=== PATIENT | male | born 1950 | race Caucasian/White ===

== ENCOUNTER 2017-11-01 23:35 | Inpatient (IN) | payer MEDICARE, OTHER ==
[~2017-11-01] VITALS: Ht 176.5 cm; Wt 103.0 kg
--- NOTE | 2017-11-01 23:55 | NUR ---
Admitted a 67 y/o male from [facility], on 5150 hold, per hold, patient told another citizen that he wanter to end his life. He stated that he was going to kill himself with a knife. [facility] and transferred to bed safely. Patient admitting dx is depression and medical dx. of Hypertension, COPD, CHF, DM, Arthritis and etoh abuse. Upon face to face evaluation, patient appeared alert and oriented x 3-4, calm, cooperative, appeared depressed, withdrawn, denies si/hi. No SOB, no acute distress, breathing even and unlabored, c/o left leg pain 10/27, non pharmacological intervention rendered while waiting for medication. Explained the admission process to the patient. Patient signed the paper works. Skin assessment done. Pictures done. Notified Tammie Young regarding the admissions med recon and orders given noted and carried out. Belongings check for contraband. Kept clean, dry and comfortable. Will continue to monitor [id number] for safety
[2017-11-02] MEDS ORDERED: MAGNESIUM HYDROXIDE 30 ML UDC PO PRN
[2017-11-02] MEDS ORDERED: LORAZEPAM 0.5 MG TABLET PO PRN
[2017-11-02] MEDS ORDERED: ACETAMINOPHEN 325 MG TABLET PO PRN
[2017-11-02] MEDS ORDERED: MAG HYDROX/AL HYDROX/SIMETH 30 ML UDC PO PRN
--- NOTE | 2017-11-02 00:45 | NUR ---
GPS RN note: Patient asleep in bed, arousable to verbal and tactile stimuli, No sob, no acute distress, breathing even and unlabored, no s/s of pain and discomfort, will continue to monitor [id number] for safety
[2017-11-02] MEDS ORDERED: ENAL20TA PO (00:54)
[2017-11-02] MEDS ORDERED: ALBU18HF2 INH (00:54)
[2017-11-02] MEDS ORDERED: CHLO25CA22 PO (00:54)
[2017-11-02] MEDS ORDERED: THIA100T13 PO (00:54)
[2017-11-02] MEDS ORDERED: SULF500T8 PO (00:54)
[2017-11-02] MEDS ORDERED: SIMV10TA6 PO (00:54)
[2017-11-02] MEDS ORDERED: ASPI-1169 PO (00:54)
[2017-11-02] MEDS ORDERED: ATEN25TA PO (00:54)
[2017-11-02] MEDS ORDERED: HYDR-548 PO (00:54)
[2017-11-02] MEDS ORDERED: FOLI1TAB16 PO (00:54)
[2017-11-02] MEDS ORDERED: TIOT18CA3 INH (00:54)
[2017-11-02] MEDS ORDERED: FLUT1DIS3 IH (00:54)
[2017-11-02] MEDS ORDERED: SPIR25TA6 PO (00:58)
[2017-11-02] MEDS ORDERED: ERGO500040 PO (00:58)
[2017-11-02] MEDS ORDERED: SERT50TA PO (00:58)
[2017-11-02] MEDS ORDERED: LACT10SO PO (00:58)
[2017-11-02 01:00] VITALS: BP 170/93
[2017-11-02] MEDS ORDERED: CLONIDINE HCL 0.1 MG TABLET PO ONE (02:00)
[2017-11-02] MEDS ORDERED: INSULIN REGULAR, HUMAN 100 UNIT/ML 3 ML VIAL SQ PRN (02:00)
[2017-11-02] MEDS: HYDROCODONE/APAP 5/325MG 1 EACH TABLET PO PRN (02:47)
--- NOTE | 2017-11-02 02:47 | NUR ---
GPS rn note: [place] 5-325mg po given for 6/10 left leg pain, will continue to monitor [id number] for safety
[2017-11-02 07:03] LABS: BASOPHILS % (AUTO) 0.2 % (0.0-2.0); EOSINOPHILS % (AUTO) 0.1 % (0.0-6.0); HEMATOCRIT 41 % (39-51); LYMPHOCYTES # (AUTO) 1.2 /CMM (0.8-4.8); LYMPHOCYTES % (AUTO) 18.7 % (20.0-44.0); MEAN CORPUSCULAR HGB CONC 34 g/dl (31.0-36.0); MEAN CORPUSCULAR VOLUME 102 fL (80-96); MONOCYTES # (AUTO) 0.5 /CMM (0.1-1.30); MONOCYTES % (AUTO) 7.1 % (2.0-12.0); NEUTROPHILS # (AUTO) 4.9 /CMM (1.8-8.9); NEUTROPHILS % (AUTO) 73.9 % (43.0-81.0); PLATELET COUNT (AUTO) 118 /CMM (150-450); RDW COEFFICIENT OF VARIATION 14.3 (11.5-15.0); RED BLOOD CELL COUNT(AUTO) 4.02 MIL/uL (4.5-6.0); WHITE BLOOD COUNT (AUTO) 6.6 K/uL (4.3-11.0)
--- NOTE | 2017-11-02 07:14 | NUR ---
gps rn note: Left message to juan (daughter) of the admission. Endorsed to the next shift
[2017-11-02 07:18] LABS: ALBUMIN 2.6 g/dL (3.4-5.0); BILIRUBIN,TOTAL 1.3 mg/dL (0.2-1.0); CALCIUM, SERUM 7.8 mg/dL (8.5-10.1); CREATININE 0.6 mg/dL (0.6-1.3); POTASSIUM 3.6 mmol/L (3.5-5.1)
[2017-11-02 08:00] VITALS: BP 135/84
[2017-11-02] MEDS: BLOOD SUGAR DIAGNOSTIC 1 EACH STRIP IN SCH ×2 (08:19→12:00)
[2017-11-02] MEDS: NICOTINE PATCH (21MG) 21 MG PATCH.TD24 TD SCH (10:26)
[2017-11-02] MEDS: SERTRALINE HCL 50 MG TABLET PO SCH (10:27)
--- NOTE | 2017-11-02 12:05 | NUR ---
GPS/RN DR ROBBINS SEEN THE PT AND REMINDED TO RECONCILE THE MEDS
[2017-11-02] MEDS ORDERED: LACTULOSE 10 G/15 ML UDC (PYXIS) PO PRN (13:00)
[2017-11-02] MEDS ORDERED: HYDROCODONE/APAP 10/325MG 1 EA TABLET PO PRN (13:00)
[2017-11-02] MEDS: IPRATROPIUM NEB FS 0.5 MG/2.5 ML AMPUL.NEB NEB SCH ×3 (13:30→23:30)
[2017-11-02 15:59] VITALS: BP 141/76
[2017-11-02] MEDS: SIMVASTATIN 10 MG TABLET PO SCH (17:22)
[2017-11-02] MEDS: SULFASALAZINE 500 MG TABLET PO SCH (17:22)
[2017-11-02 20:00] VITALS: BP 153/70
[2017-11-02] MEDS: TEMAZEPAM 7.5 MG CAPSULE PO PRN (21:40)
[2017-11-03] MEDS: IPRATROPIUM NEB FS 0.5 MG/2.5 ML AMPUL.NEB NEB SCH ×4 (07:35→23:30)
[2017-11-03 08:00] VITALS: BP 139/98
[2017-11-03] MEDS ORDERED: ERGOCALCIFEROL (VITAMIN D 2) 50,000 UNIT CAPSULE PO SCH (09:00)
[2017-11-03] MEDS: NICOTINE PATCH (21MG) 21 MG PATCH.TD24 TD SCH (10:06)
[2017-11-03] MEDS: FOLIC ACID 1 MG TABLET PO SCH (10:07)
[2017-11-03] MEDS: ATENOLOL 25 MG TABLET PO SCH (10:07)
[2017-11-03] MEDS: ASPIRIN 81 MG TAB.CHEW PO SCH (10:07)
[2017-11-03] MEDS: SPIRONOLACTONE 25 MG TABLET PO SCH (10:08)
[2017-11-03] MEDS: ENALAPRIL MALEATE (10 MG) 10 MG TABLET PO SCH (10:08)
[2017-11-03] MEDS: SERTRALINE HCL 50 MG TABLET PO SCH (10:08)
[2017-11-03] MEDS: THIAMINE HCL 100 MG TABLET PO SCH (10:08)
[2017-11-03] MEDS: SULFASALAZINE 500 MG TABLET PO SCH ×2 (10:10→16:28)
[2017-11-03] MEDS: FLUTICASONE/VILANTEROL 1 EACH BLST.W.DEV IH SCH (10:10)
[2017-11-03 15:33] VITALS: BP 115/59
[2017-11-03] MEDS: SIMVASTATIN 10 MG TABLET PO SCH (18:03)
[2017-11-03 19:59] VITALS: BP 109/65
[2017-11-04] MEDS: IPRATROPIUM NEB FS 0.5 MG/2.5 ML AMPUL.NEB NEB SCH ×3 (07:35→23:58)
[2017-11-04 08:00] VITALS: BP 140/80
[2017-11-04] MEDS: FLUTICASONE/VILANTEROL 1 EACH BLST.W.DEV IH SCH (08:50)
[2017-11-04] MEDS: SULFASALAZINE 500 MG TABLET PO SCH ×2 (08:50→15:59)
[2017-11-04] MEDS: ASPIRIN 81 MG TAB.CHEW PO SCH (08:51)
[2017-11-04] MEDS: FOLIC ACID 1 MG TABLET PO SCH (08:51)
[2017-11-04] MEDS: SPIRONOLACTONE 25 MG TABLET PO SCH (08:51)
[2017-11-04] MEDS: SERTRALINE HCL 50 MG TABLET PO SCH (08:51)
[2017-11-04] MEDS: ENALAPRIL MALEATE (10 MG) 10 MG TABLET PO SCH (08:51)
[2017-11-04] MEDS: THIAMINE HCL 100 MG TABLET PO SCH (08:51)
[2017-11-04] MEDS: ATENOLOL 25 MG TABLET PO SCH (08:51)
[2017-11-04] MEDS: NICOTINE PATCH (21MG) 21 MG PATCH.TD24 TD SCH (08:52)
[2017-11-04 16:00] VITALS: BP 127/72
--- NOTE | 2017-11-04 16:17 | NUR ---
Initial Discharge Plan: Pt currently resides by himself due to the fact that he is homeless. Pt has a daughter by the name of Sharita Oswald ([phone]) who will be involved in the discharge planning. SW will work with the pt, his daughter and the MD regarding appropriate discharge plans. SW will form a safe and proper discharge.
[2017-11-04] MEDS: SIMVASTATIN 10 MG TABLET PO SCH (17:01)
[2017-11-04 20:10] VITALS: BP 108/67
[2017-11-04] MEDS: HYDROCODONE/APAP 5/325MG 1 EACH TABLET PO PRN (21:19)
--- NOTE | 2017-11-04 21:19 | NUR ---
GPS-RN PATIENT C/O LEFT HIP PAIN ON A PAIN SCALE OF 7/10. VSS. ADMINISTERED NORCO 5/325MG PO ORDERED. WILL CONTINUE TO MONITOR.
[2017-11-04] MEDS: TEMAZEPAM 7.5 MG CAPSULE PO PRN (22:00)
--- NOTE | 2017-11-05 07:07 | NUR ---
WOUND CARE CONSULT WOUND CARE RECEIVED CONSULT FOR RIGHT BIG TOE. WOUND CARE WILL DEFER CONSULT TO DPM DR ODONNELL WHO IS CURRENTLY FOLLOWING. PATIENT WITH LASHAUN AT 19, WILL SEE PRN.
[2017-11-05] MEDS: IPRATROPIUM NEB FS 0.5 MG/2.5 ML AMPUL.NEB NEB SCH ×2 (07:30→14:57)
[2017-11-05 07:54] VITALS: BP 114/75
[2017-11-05] MEDS: THIAMINE HCL 100 MG TABLET PO SCH (08:37)
[2017-11-05] MEDS: NICOTINE PATCH (21MG) 21 MG PATCH.TD24 TD SCH (08:37)
[2017-11-05] MEDS: ENALAPRIL MALEATE (10 MG) 10 MG TABLET PO SCH (08:37)
[2017-11-05] MEDS: SERTRALINE HCL 50 MG TABLET PO SCH (08:37)
[2017-11-05] MEDS: FOLIC ACID 1 MG TABLET PO SCH (08:37)
[2017-11-05] MEDS: ASPIRIN 81 MG TAB.CHEW PO SCH (08:37)
[2017-11-05] MEDS: SPIRONOLACTONE 25 MG TABLET PO SCH (08:37)
[2017-11-05] MEDS: FLUTICASONE/VILANTEROL 1 EACH BLST.W.DEV IH SCH (08:38)
[2017-11-05] MEDS: SULFASALAZINE 500 MG TABLET PO SCH ×2 (08:38→16:30)
[2017-11-05] MEDS: ATENOLOL 25 MG TABLET PO SCH (08:54)
--- NOTE | 2017-11-05 14:58 | NUR ---
PT IS TAKING A SHOWER AND IS NOT UNAVAILABLE FOR TX.
[2017-11-05 16:13] VITALS: BP 120/70
[2017-11-05] MEDS: SIMVASTATIN 10 MG TABLET PO SCH (17:02)
[2017-11-05] MEDS: HYDROCODONE/APAP 5/325MG 1 EACH TABLET PO PRN (19:30)
[2017-11-05 20:14] VITALS: BP 105/60
[2017-11-05] MEDS: TEMAZEPAM 7.5 MG CAPSULE PO PRN (21:37)
[2017-11-06] MEDS: ALBUTEROL FS 2.5 MG/0.5 ML VIAL.NEB NEB PRN (00:16)
[2017-11-06] MEDS: IPRATROPIUM NEB FS 0.5 MG/2.5 ML AMPUL.NEB NEB SCH ×4 (00:16→23:25)
[2017-11-06 08:08] VITALS: BP 124/61
[2017-11-06] MEDS: SERTRALINE HCL 50 MG TABLET PO SCH (09:29)
[2017-11-06] MEDS: NICOTINE PATCH (21MG) 21 MG PATCH.TD24 TD SCH (09:29)
[2017-11-06] MEDS: FOLIC ACID 1 MG TABLET PO SCH (09:30)
[2017-11-06] MEDS: THIAMINE HCL 100 MG TABLET PO SCH (09:30)
[2017-11-06] MEDS: SPIRONOLACTONE 25 MG TABLET PO SCH (09:30)
[2017-11-06] MEDS: SULFASALAZINE 500 MG TABLET PO SCH ×2 (09:30→16:42)
[2017-11-06] MEDS: ENALAPRIL MALEATE (10 MG) 10 MG TABLET PO SCH (09:30)
[2017-11-06] MEDS: ASPIRIN 81 MG TAB.CHEW PO SCH (09:31)
[2017-11-06] MEDS: ATENOLOL 25 MG TABLET PO SCH (09:31)
[2017-11-06] MEDS: FLUTICASONE/VILANTEROL 1 EACH BLST.W.DEV IH SCH (09:31)
[2017-11-06 15:29] VITALS: BP 125/57
[2017-11-06] MEDS: SIMVASTATIN 10 MG TABLET PO SCH (17:26)
[2017-11-06 20:35] VITALS: BP 110/57
[2017-11-06] MEDS: TEMAZEPAM 7.5 MG CAPSULE PO PRN (21:46)
[2017-11-07 07:45] VITALS: BP 117/67
[2017-11-07] MEDS: IPRATROPIUM NEB FS 0.5 MG/2.5 ML AMPUL.NEB NEB SCH ×2 (08:18→15:30)
[2017-11-07] MEDS: SERTRALINE HCL 50 MG TABLET PO SCH (08:38)
[2017-11-07] MEDS: SPIRONOLACTONE 25 MG TABLET PO SCH (08:38)
[2017-11-07] MEDS: FOLIC ACID 1 MG TABLET PO SCH (08:39)
[2017-11-07] MEDS: SULFASALAZINE 500 MG TABLET PO SCH ×2 (08:39→16:14)
[2017-11-07] MEDS: NICOTINE PATCH (21MG) 21 MG PATCH.TD24 TD SCH (08:39)
[2017-11-07] MEDS: ASPIRIN 81 MG TAB.CHEW PO SCH (08:39)
[2017-11-07] MEDS: ENALAPRIL MALEATE (10 MG) 10 MG TABLET PO SCH (08:40)
[2017-11-07] MEDS: ATENOLOL 25 MG TABLET PO SCH (08:41)
[2017-11-07] MEDS: THIAMINE HCL 100 MG TABLET PO SCH (08:41)
[2017-11-07] MEDS: FLUTICASONE/VILANTEROL 1 EACH BLST.W.DEV IH SCH (08:42)
[2017-11-07 16:00] VITALS: BP 144/71
[2017-11-07] MEDS: SIMVASTATIN 10 MG TABLET PO SCH (18:13)
[2017-11-07 20:00] VITALS: BP 104/54
[2017-11-07] MEDS: TEMAZEPAM 7.5 MG CAPSULE PO PRN (21:47)
[2017-11-08] MEDS: IPRATROPIUM NEB FS 0.5 MG/2.5 ML AMPUL.NEB NEB SCH ×4 (00:19→23:30)
[2017-11-08 07:53] VITALS: BP 125/57
[2017-11-08] MEDS: FLUTICASONE/VILANTEROL 1 EACH BLST.W.DEV IH SCH (08:23)
[2017-11-08] MEDS: NICOTINE PATCH (21MG) 21 MG PATCH.TD24 TD SCH (08:23)
[2017-11-08] MEDS: THIAMINE HCL 100 MG TABLET PO SCH (08:23)
[2017-11-08] MEDS: SULFASALAZINE 500 MG TABLET PO SCH ×2 (08:23→16:03)
[2017-11-08] MEDS: FOLIC ACID 1 MG TABLET PO SCH (08:23)
[2017-11-08] MEDS: SPIRONOLACTONE 25 MG TABLET PO SCH (08:24)
[2017-11-08] MEDS: ASPIRIN 81 MG TAB.CHEW PO SCH (08:24)
[2017-11-08] MEDS: SERTRALINE HCL 50 MG TABLET PO SCH (08:24)
[2017-11-08] MEDS: ENALAPRIL MALEATE (10 MG) 10 MG TABLET PO SCH (08:24)
[2017-11-08 08:25] VITALS: BP 124/71
[2017-11-08] MEDS: ATENOLOL 25 MG TABLET PO SCH (08:25)
[2017-11-08] MEDS: ALBUTEROL FS 2.5 MG/0.5 ML VIAL.NEB NEB PRN (14:42)
[2017-11-08 16:00] VITALS: BP 101/59
--- NOTE | 2017-11-08 16:41 | NUR ---
Discharge Note: Pt was discharged to [facility] located at [address] [place] [address]; ([phone]). Pt was transported via [facility] (Trip #[id number]) at 1PM and went to 7C. Upon discharge, the pt denied suicidal and homicidal ideation as well as visual and auditory hallucinations. Pts mood and affect were calm and euthymic upon discharge. The patient will be under the care of psychiatrist, Dr. Solitario located at [address], [place] [address]; ) and his home therapy clinician, Dr. Espinoza who is located at [address] [place] [address]; ). Addendum: 01/31/18 at 1554 by ASHLEY ACHARYA Upon discharge, the pt was provided with substance use referrals as well as smoking cessation referrals: [facility] [address] [place] [address] Tel. [facility] [address] [place] Provider Mental Health Treatment Tele-dermatology HIV Services Telemedicine Services [facility] [address] [place] [address] [facility] [address] [place] [address] [employer] [email or web address] [employer] [phone]
[2017-11-08] MEDS: SIMVASTATIN 10 MG TABLET PO SCH (17:06)
[2017-11-08 20:00] VITALS: BP 117/53
[2017-11-08] MEDS: TEMAZEPAM 7.5 MG CAPSULE PO PRN (22:25)
[2017-11-09 08:00] VITALS: BP 110/65
[2017-11-09] MEDS: ALBUTEROL FS 2.5 MG/0.5 ML VIAL.NEB NEB PRN (08:06)
[2017-11-09] MEDS: IPRATROPIUM NEB FS 0.5 MG/2.5 ML AMPUL.NEB NEB SCH (08:06)
--- NOTE | 2017-11-09 09:07 | NUR ---
DR. BOWIE GAVE AN ORDER TO D/C HOLD AND D/C TO [facility] AND TO FOLLOW UP WITH PSYCH AND MEDICAL DOCTORS. SPOKE TO MANSI FROM THE FACILITY AND SAID THEY ARE ACCEPTING THE PT. TODAY.
[2017-11-09] MEDS: SERTRALINE HCL 50 MG TABLET PO SCH (09:16)
[2017-11-09] MEDS: FOLIC ACID 1 MG TABLET PO SCH (09:16)
[2017-11-09] MEDS: ASPIRIN 81 MG TAB.CHEW PO SCH (09:16)
[2017-11-09] MEDS: NICOTINE PATCH (21MG) 21 MG PATCH.TD24 TD SCH (09:16)
[2017-11-09] MEDS: SULFASALAZINE 500 MG TABLET PO SCH (09:17)
[2017-11-09] MEDS: THIAMINE HCL 100 MG TABLET PO SCH (09:17)
[2017-11-09] MEDS: ATENOLOL 25 MG TABLET PO SCH (09:17)
[2017-11-09] MEDS: SPIRONOLACTONE 25 MG TABLET PO SCH (09:17)
[2017-11-09 09:18] VITALS: BP 110/65
[2017-11-09] MEDS: ENALAPRIL MALEATE (10 MG) 10 MG TABLET PO SCH (09:18)
[2017-11-09] MEDS: FLUTICASONE/VILANTEROL 1 EACH BLST.W.DEV IH SCH (09:18)
--- NOTE | 2017-11-09 11:51 | NUR ---
Pt. doesn't want to notify Sharita Oswald about the discharge.
--- NOTE | 2017-11-09 13:10 | NUR ---
GPS/RN PT DISCHARGED TO [facility]. REPORT GIVEN TO MANSI. NO SI OR HI AT THE TIME OF D/C. VSS AMBULATORY WITH WALKER. REFUSED SKIN PICTURES ON D/C. PROPERTY RETURNED. EXIT CARE INSTRUCTIONS AND PRESCRIPTIONS GIVEN AND UNDERSTOOD. PT DOES NOT TO NOTIFY HIS DAUGHTER OF TRANSFER.
--- NOTE | 2018-01-31 15:54 | NUR ---
Substance Use Follow Up: Pt is excluded due to the fact that he was discharged to [facility] ([facility]
== END 2017-11-09 13:10 | DRG 885 ==
LOC: GPS 23:35
PROVIDERS: ADMIT Psychiatry & Neurology Psychiatry; ATTEND Psychiatry & Neurology Psychiatry
DX: F33.2 Major depressive disorder, recurrent severe without psychotic features (principal); E44.1 Mild protein-calorie malnutrition; R45.851 Suicidal ideations; E88.09 Other disorders of plasma-protein metabolism, not elsewhere classified; E78.5 Hyperlipidemia, unspecified; J44.9 Chronic obstructive pulmonary disease, unspecified; D69.6 Thrombocytopenia, unspecified; I10 Essential (primary) hypertension; Z68.33 Body mass index [BMI] 33.0-33.9, adult; D75.89 Other specified diseases of blood and blood-forming organs; F10.20 Alcohol dependence, uncomplicated; E80.6 Other disorders of bilirubin metabolism; S90.422A Blister (nonthermal), left great toe, initial encounter; X58.XXXA Exposure to other specified factors, initial encounter; Y93.9 Activity, unspecified; Y92.009 Unspecified place in unspecified non-institutional (private) residence as the place of occurrence of the external cause; S90.111A Contusion of right great toe without damage to nail, initial encounter; L60.3 Nail dystrophy; Z59.0 Homelessness
CPT/HCPCS: 36415; 73630-TC; 80053-TC; 80061-TC; 82962-TC; 85025-TC; 87081-TC; J1815; Z7610

== ENCOUNTER 2018-04-28 16:56 | Inpatient (IN) | payer MEDICARE, MEDICAID ==
[~2018-04-28] VITALS: Ht 177.8 cm; Wt 91.7 kg
[2018-04-28] MEDS: ENALAPRIL MALEATE (10 MG) 10 MG TABLET PO SCH (09:00)
[~2018-04-28 16:56] MED LIST: ALBU18HF2 INH; ASPI-1169 PO; ATEN25TA PO; CHLO25CA22 PO; ENAL20TA PO; ERGO500040 PO; FLUT1DIS3 IH; FOLI1TAB16 PO; HYDR-4354 PO; LACT10SO PO; SERT50TA PO; SIMV10TA6 PO; SPIR25TA6 PO; SULF500T8 PO; THIA100T13 PO; TIOT18CA3 INH
--- NOTE | 2018-04-28 17:15 | NUR ---
PT BIB SELF. COMP OF HAVING HIP PAIN. NO SOB NOTED. NO ACUTE DISTRESS AT THIS TIME. WILL BE ADMITTED TO HOSPITAL. AWAITING FOR MD WEST.
[2018-04-28 17:54] LABS: BASOPHILS # (AUTO) 0.1 /CMM (0.0-0.2); BASOPHILS % (AUTO) 0.6 % (0.0-2.0); EOSINOPHILS % (AUTO) 1.1 % (0.0-6.0); HEMATOCRIT 43 % (39-51); HEMOGLOBIN 14.6 g/dL (13.5-17.5); LYMPHOCYTES # (AUTO) 2.3 /CMM (0.8-4.8); LYMPHOCYTES % (AUTO) 23.6 % (20.0-44.0); MEAN CORPUSCULAR HGB CONC 34 g/dl (31.0-36.0); MEAN CORPUSCULAR VOLUME 92 fL (80-96); MONOCYTES # (AUTO) 0.9 /CMM (0.1-1.30); MONOCYTES % (AUTO) 9.5 % (2.0-12.0); NEUTROPHILS # (AUTO) 6.3 /CMM (1.8-8.9); NEUTROPHILS % (AUTO) 65.2 % (43.0-81.0); PLATELET COUNT (AUTO) 154 /CMM (150-450); RED BLOOD CELL COUNT(AUTO) 4.67 MIL/uL (4.5-6.0); WHITE BLOOD COUNT (AUTO) 9.7 K/uL (4.3-11.0)
[2018-04-28 18:05] LABS: ALBUMIN 3.5 g/dL (3.4-5.0); BILIRUBIN,DIRECT 0.1 mg/dL (0.0-0.2); BILIRUBIN,TOTAL 0.3 mg/dL (0.2-1.0); CALCIUM, SERUM 8.7 mg/dL (8.5-10.1); CREATININE 0.8 mg/dL (0.6-1.3); TOTAL PROTEIN, SERUM 7.1 g/dL (6.4-8.2)
[2018-04-28 18:14] LABS: APPEARANCE,URINE Clear (CLEAR); BILIRUBIN,URINE Negative (NEGATIVE); BLOOD, URINE Negative Ery/uL (NEGATIVE); COLOR,URINE Yellow (YELLOW); KETONES,URINE Negative (NEGATIVE); LEUKOCYTE ESTERASE ,URINE Negative (NEGATIVE); NITRITE, URINE Negative (NEGATIVE); PROTEIN,URINE Negative (NEGATIVE); UGLUCOSE Negative (NEGATIVE); UROBILINOGEN,URINE 0.2 EU/dL (0.2)
[2018-04-28 18:38] LABS: POTASSIUM 3.9 mmol/L (3.5-5.1)
[2018-04-28] MEDS ORDERED: Z GUARD REMEDY 2 OZ OINT TP PRN (19:00)
[2018-04-28] MEDS ORDERED: ONDANSETRON HCL/PF 4 MG/2 ML VIAL IVP PRN (19:00)
[2018-04-28] MEDS ORDERED: MAG HYDROX/AL HYDROX/SIMETH 30 ML UDC PO PRN (19:00)
[2018-04-28] MEDS ORDERED: MAGNESIUM HYDROXIDE 30 ML UDC PO PRN (19:00)
[2018-04-28] MEDS ORDERED: ACETAMINOPHEN 325 MG TABLET PO PRN (19:00)
--- NOTE | 2018-04-28 19:23 | NUR ---
ENDORSEMENT REC'D FROM KADEN CHAN FOR RENE
[2018-04-28] MEDS ORDERED: HYDROCODONE/APAP 10/325MG 1 EA TABLET PO ONE (19:30)
[2018-04-28] MEDS ORDERED: HYDROCODONE/APAP 10/325MG 1 EA TABLET ONE (19:45)
--- NOTE | 2018-04-28 20:00 | NUR ---
[facility] BED 316-2
--- NOTE | 2018-04-28 20:49 | NUR ---
REPORT GIVEN TO KADEN HACKETT. PT TRANSFERRED WITH ENGINEERING OFFICER
--- NOTE | 2018-04-28 21:20 | NUR ---
SCIENTIFIC LINGUIST NOTES PT ARRIVED ON TO THE UNIT @2119 VIA GURNEY. PT ABLE TO AMBULATE TO THE BED WITH ASSISTANCE. PT STATED THAT HE FELL EARLIER TODAY AT [facility]. PER PT HE DID NOT FALL ON HIS HEAD, BUT FELL ON HIS LEFT HIP. PT HAS A LEFT HAND CUT FROM THE FALL AND ABD REDNESS PER PT FROM HIS PANTS. NO BRUISING NOTED. ALL PATIENT BELONGINGS ACCOUNTED FOR AND DOCUMENTED. PT HAS A WALLET IN HOSPITAL SAFE. EDUCATED THE PATIENT TO THE USE OF THE CALL LIGHT. SAFETY PRECAUTIONS IN PLACE, BED IN LOWEST LOCKED POSITION, CALL LIGHT WITHIN REACH. WILL CONTINUE TO MONITOR.
[2018-04-28 22:00] VITALS: BP 129/80
[2018-04-28] MEDS: HYDROCODONE/APAP 10/325MG 1 EA TABLET PO SCH (23:00)
[2018-04-28] MEDS: CHLORDIAZEPOXIDE HCL 25 MG CAPSULE PO SCH (23:00)
[2018-04-28] MEDS: IPRATROPIUM NEB FS 0.5 MG/2.5 ML AMPUL.NEB NEB SCH (23:00)
[2018-04-28] MEDS: LACTULOSE 10 G/15 ML UDC (PYXIS) PO SCH (23:00)
--- NOTE | 2018-04-28 23:00 | NUR ---
RN NOTES PT STATED THAT HE WAS NOT IN PAIN AT THE MOMENT. INFORMED PATIENT THAT HE HAS NORCO AVAILABLE TO HIM IF HE HAS PAIN. PT STATED THAT HE HAD, HAD NORCO IN THE ER AND FELT THAT HE DID NOT NEED IT AT THE MOMENT. WILL CONTINUE TO FOLLOW UP AND MONITOR.
[2018-04-28] MEDS: ZOLPIDEM TARTRATE 5 MG TABLET PO PRN (23:02)
--- NOTE | 2018-04-28 23:05 | NUR ---
RN NOTES PT REQUESTED PRN SHIELA FOR SLEEP. WILL ADMINISTER AND CONTINUE TO MONITOR.
--- NOTE | 2018-04-28 23:10 | NUR ---
RN NOTES PT STATED THAT HE DOES NOT TAKE LIBRIUM/LACTULOSE AT HOME. PT REFUSED ATROVENT BREATHING TREATMENT AND 0130, STATED "I WILL BE SLEEPING BY THEN". WILL INFORM RESPIRATORY THERAPIST.
[2018-04-29] MEDS: HYDROCODONE/APAP 10/325MG 1 EA TABLET PO SCH ×6 (01:00→20:19)
--- NOTE | 2018-04-29 01:00 | NUR ---
RN NOTES NO COMPLAINTS OF PAIN. WILL HOLD NORCO. WILL ENDORSE TO DAY SHIFT NURSE TO FOLLOW UP ON MED RECON.
[2018-04-29] MEDS: IPRATROPIUM NEB FS 0.5 MG/2.5 ML AMPUL.NEB NEB SCH ×4 (01:30→19:04)
[2018-04-29] MEDS: CHLORDIAZEPOXIDE HCL 25 MG CAPSULE PO SCH ×3 (04:01→20:20)
--- NOTE | 2018-04-29 06:52 | NUR ---
RN CLOSING NOTES PT AWAKE AND RESTING IN BED. ALL PATIENT NEEDS MET OVERNIGHT. PT HAS A WALLET IN HOSPITAL SAFE. PT HAS A LEFT HAND #20 IV INTACT AND PATENT. WILL ENDORSE TO DAY SHIFT NURSE TO FOLLOW UP WITH PATIENT'S AT HOME MEDICATIONS. SAFETY PRECAUTIONS IN PLACE, BED IN LOWEST LOCKED POSITION, CALL LIGHT WITHIN REACH. WILL ENDORSE TO DAY SHIFT NURSE FOR CONTINUITY OF CARE.
[2018-04-29 06:59] LABS: BASOPHILS % (AUTO) 0.3 % (0.0-2.0); EOSINOPHILS % (AUTO) 1.7 % (0.0-6.0); HEMATOCRIT 43 % (39-51); HEMOGLOBIN 14.7 g/dL (13.5-17.5); LYMPHOCYTES % (AUTO) 25.7 % (20.0-44.0); MEAN CORPUSCULAR HGB CONC 34 g/dl (31.0-36.0); MEAN CORPUSCULAR VOLUME 91 fL (80-96); MONOCYTES # (AUTO) 0.7 /CMM (0.1-1.30); NEUTROPHILS # (AUTO) 4.9 /CMM (1.8-8.9); NEUTROPHILS % (AUTO) 63.3 % (43.0-81.0); PLATELET COUNT (AUTO) 142 /CMM (150-450); RED BLOOD CELL COUNT(AUTO) 4.75 MIL/uL (4.5-6.0); WHITE BLOOD COUNT (AUTO) 7.8 K/uL (4.3-11.0)
[2018-04-29 07:13] LABS: CALCIUM, SERUM 8.8 mg/dL (8.5-10.1); CREATININE 0.6 mg/dL (0.6-1.3); MAGNESIUM 1.3 mg/dL (1.8-2.4); PHOSPHORUS 4.8 mg/dL (2.5-4.9); POTASSIUM 4.3 mmol/L (3.5-5.1)
[2018-04-29 08:00] VITALS: BP 109/73
--- NOTE | 2018-04-29 08:00 | NUR ---
MS RN AM NOTES PT ALERT,AWAKE ORIENTED X4.VERBALLY RESPONSIVE.PT ABLE TO AMBULATE WITH ASSISTANCE.SEEN BY DEEPIKA ANTOINE FOR WOUND CONSULT.AWAITING FOR TX ORDERS.PT DENIES ANY DISTRESS.ON NORCO 10/325 MG PO PAIN MGT.SAFETY PRECAUTIONS IN PLACE, BED IN LOWEST LOCKED POSITION, CALL LIGHT WITHIN REACH. WILL CONTINUE TO MONITOR.
[2018-04-29] MEDS: Magnesium 1GM/D5W 100ML PREMIX 100 ML IV SCH ×2 (08:23→11:17)
[2018-04-29] MEDS: THIAMINE HCL 100 MG TABLET PO SCH (08:24)
--- NOTE | 2018-04-29 08:31 | NUR ---
HELD NORCO 10/325 MG PO TAB-PT JUST HAD NORCO 10/325 MG TAB AT 0634 AM TODAY WITH EFFECTIVE RESULT.PT STATED THAT HE HAS THIS LT HIP PAIN FOR A LONG TIME AND HE DOESN'T WANT Any PAIN MED AT THIS TIME.
[2018-04-29] MEDS: ASPIRIN 81 MG TAB.CHEW PO SCH (08:34)
[2018-04-29] MEDS: SPIRONOLACTONE 25 MG TABLET PO SCH (08:35)
[2018-04-29] MEDS: FOLIC ACID 1 MG TABLET PO SCH (08:36)
[2018-04-29] MEDS: SERTRALINE HCL 50 MG TABLET PO SCH (08:36)
[2018-04-29] MEDS: ATENOLOL 25 MG TABLET PO SCH (08:36)
[2018-04-29] MEDS: LACTULOSE 10 G/15 ML UDC (PYXIS) PO SCH ×2 (08:36→17:00)
[2018-04-29] MEDS: ENALAPRIL MALEATE (10 MG) 10 MG TABLET PO SCH (09:00)
[2018-04-29] MEDS ORDERED: SULFASALAZINE 500 MG TABLET PO SCH (09:00)
[2018-04-29] MEDS: FLUTICASONE/VILANTEROL 1 EACH BLST.W.DEV IH SCH (11:24)
[2018-04-29] MEDS ORDERED: ACET325T53 PO (15:31)
[2018-04-29] MEDS ORDERED: NAPH15DR62 EACHEYE (15:31)
[2018-04-29] MEDS ORDERED: FLUT1AER5 IH (15:31)
[2018-04-29] MEDS ORDERED: COLC0.6C3 PO (15:31)
[2018-04-29] MEDS ORDERED: ZOLP5TAB8 PO (15:31)
[2018-04-29] MEDS ORDERED: ALBU2.5V38 IH (15:38)
[2018-04-29] MEDS ORDERED: HYDR-4384 PO ×2 (15:42)
[2018-04-29 16:00] VITALS: BP 115/69
--- NOTE | 2018-04-29 17:00 | NUR ---
REVIEWED PT'S MED LIST FROM THE SNF AND ADDED IT TO THE PRESENT HOME MED LIST AND CORRECTED THE CHANGES PER SNF.INFORMED DR LYNN TO REVIEW PRESENT HOME MED LIST ONCE AGAIN.DR LYNN AWARE.
[2018-04-29] MEDS: NEOMY SULF/BACITRAC ZN/POLY 15 GM TUBE TP SCH (17:50)
[2018-04-29] MEDS: SIMVASTATIN 10 MG TABLET PO SCH (17:50)
--- NOTE | 2018-04-29 18:19 | NUR ---
PT RESTING IN BED WATCHING TV.AMBULATE WITH FWW WITH STEADY GAIT.ATE DINNER.DENIES ANY PAIN OR DISTRESS.REFUSED NORCO EARLIER.JUST MADE BM IN THE TOILET.CALL LIGHT PLACED WITHIN REACH.
[2018-04-29] MEDS ORDERED: COLCHICINE 0.6 MG TABLET PO PRN (19:00)
--- NOTE | 2018-04-29 19:05 | NUR ---
MS RN INITIAL NOTES Patient in bed watching TV, alert, oriented x 4. Breathing even and unlabored. Not in any distress. no complaints as of this time. Call ribeiro within reach. bed in low, locked position. Will continue to monitor accordingly
[2018-04-29] MEDS ORDERED: POLYVINYL ALCOHOL 15 ML BOTTLE OP PRN (19:30)
[2018-04-29] MEDS ORDERED: ALBUTEROL FS 2.5 MG/0.5 ML VIAL.NEB NEB PRN (19:30)
[2018-04-29 20:00] VITALS: BP_SYST 110; BP_SYST 125; BP_DIAS 51; BP_DIAS 77
[2018-04-29] MEDS: ZOLPIDEM TARTRATE 5 MG TABLET PO PRN (20:19)
--- NOTE | 2018-04-29 20:21 | NUR ---
RN NOTES Patient c/o of pain of L hip, routine norco given as ordered. Requested also for sleeping tablet, ambien given as ordered.
[2018-04-29] MEDS ORDERED: ZOLPIDEM TARTRATE 5 MG TABLET PO PRN (22:00)
[2018-04-30] MEDS: IPRATROPIUM NEB FS 0.5 MG/2.5 ML AMPUL.NEB NEB SCH ×4 (00:45→20:56)
[2018-04-30] MEDS: HYDROCODONE/APAP 10/325MG 1 EA TABLET PO SCH ×6 (01:00→20:13)
--- NOTE | 2018-04-30 01:03 | NUR ---
RN NOTES Patient refused routine norco. Stated that he is comfortable right now and does not need it
[2018-04-30] MEDS: CHLORDIAZEPOXIDE HCL 25 MG CAPSULE PO SCH ×3 (05:00→20:26)
--- NOTE | 2018-04-30 06:01 | NUR ---
RN NOTES No complains of pain. Will hold norco. Patient requested not to be woken up if he is asleep
--- NOTE | 2018-04-30 06:28 | NUR ---
RN CLOSING NOTES Patient still sleeping in bed, appears comfortable. Breathing even and unlabored. Not in any distress. All needs attended to. Safety precautions in place. Call ribeiro within easy reach. Bed in low, locked position. Will endorse continuity of care to oncoming RN.
[2018-04-30 08:00] VITALS: BP 128/75
--- NOTE | 2018-04-30 08:00 | NUR ---
MS RN AM NOTES PT ALERT,AWAKE ORIENTED X4.VERBALLY RESPONSIVE.PT ABLE TO AMBULATE WITH FWW.PT DENIES ANY DISTRESS.ON NORCO 10/325 MG PO PAIN MGT.SAFETY PRECAUTIONS IN PLACE, BED IN LOWEST LOCKED POSITION, CALL LIGHT WITHIN REACH. WILL CONTINUE TO MONITOR.
[2018-04-30] MEDS ORDERED: AIRDUO RESPICLICK INH SCH (09:00)
[2018-04-30] MEDS: LACTULOSE 10 G/15 ML UDC (PYXIS) PO SCH ×2 (09:00→16:29)
[2018-04-30] MEDS: FOLIC ACID 1 MG TABLET PO SCH (09:34)
[2018-04-30] MEDS: THIAMINE HCL 100 MG TABLET PO SCH (09:34)
[2018-04-30] MEDS: SERTRALINE HCL 50 MG TABLET PO SCH (09:34)
[2018-04-30] MEDS: ATENOLOL 25 MG TABLET PO SCH (09:34)
[2018-04-30] MEDS: SPIRONOLACTONE 25 MG TABLET PO SCH (09:34)
[2018-04-30] MEDS: ENALAPRIL MALEATE (10 MG) 10 MG TABLET PO SCH (09:35)
[2018-04-30] MEDS: ASPIRIN 81 MG TAB.CHEW PO SCH (09:36)
[2018-04-30] MEDS: FLUTICASONE/VILANTEROL 1 EACH BLST.W.DEV IH SCH (09:36)
[2018-04-30] MEDS: NEOMY SULF/BACITRAC ZN/POLY 15 GM TUBE TP SCH (09:37)
[2018-04-30 16:00] VITALS: BP 103/54
[2018-04-30] MEDS: SIMVASTATIN 10 MG TABLET PO SCH (17:15)
--- NOTE | 2018-04-30 18:00 | NUR ---
PT ACCIDENTALLY PULLED OUT HIS IV H/L ON HIS LEFT HAND.PT HAS ONLY ZOFRAN IV HIS MED.NOTIFIED DR LYNN AND AGREED TO HAVE IT REMOVED.DC'D ZOFRAN IV PRN WELL.
--- NOTE | 2018-04-30 19:05 | NUR ---
MS RN INITIAL NOTES Received patient in bed, watching TV. Alert, oriented x 3. Breathing even and unlabored. Not in any distress. No complaints of pain as of this time. No IV site, aware as endorsed by the AM RN. Call ribeiro within reach. Bed in low, locked position. Patient stable as endorsed by the morning RN. Will continue to monitor accordingly
--- NOTE | 2018-04-30 19:15 | NUR ---
PT WATCHING TV AND DENIES ANY PAIN OR DISTRESS.CALL LIGHT PLACED WITHIN REACH.
[2018-04-30 20:00] VITALS: BP 110/51
[2018-04-30] MEDS: ZOLPIDEM TARTRATE 5 MG TABLET PO PRN (21:02)
--- NOTE | 2018-04-30 21:02 | NUR ---
RN NOTES Patient requesting ambien for sleep.
--- NOTE | 2018-04-30 21:23 | NUR ---
RN NOTES Patient comfortable, no more pain. Requested for juice and gina crackers
--- NOTE | 2018-04-30 21:45 | NUR ---
RN NOTES Patient requested not to be woken up for medications if he is asleep. Will let the RT know
[2018-05-01] MEDS: HYDROCODONE/APAP 10/325MG 1 EA TABLET PO SCH ×4 (01:00→12:10)
[2018-05-01] MEDS: IPRATROPIUM NEB FS 0.5 MG/2.5 ML AMPUL.NEB NEB SCH ×4 (01:01→13:30)
--- NOTE | 2018-05-01 01:12 | NUR ---
RN NOTES No complains of pain. Will hold norco. Patient requested not to be woken up if he is asleep
[2018-05-01] MEDS: CHLORDIAZEPOXIDE HCL 25 MG CAPSULE PO SCH ×2 (05:00→12:07)
--- NOTE | 2018-05-01 05:27 | NUR ---
RN NOTES Patient comfortably sleeping. No complains of pain. Will hold norco. Patient requested not to be woken up if he is asleep
--- NOTE | 2018-05-01 06:53 | NUR ---
RN CLOSING NOTES Patient still sleeping in bed, appears comfortable. Breathing even and unlabored. Not in any distress. No complaints of pain or discomfort as of this time. All needs attended to. Safety precautions in place. Call ribeiro within easy reach. Bed in low, locked position. Will endorse continuity of care to oncoming RN.
[2018-05-01 08:05] VITALS: BP 123/67
[2018-05-01] MEDS: THIAMINE HCL 100 MG TABLET PO SCH (08:30)
[2018-05-01] MEDS: ASPIRIN 81 MG TAB.CHEW PO SCH (08:30)
[2018-05-01] MEDS: SPIRONOLACTONE 25 MG TABLET PO SCH (08:30)
[2018-05-01] MEDS: SERTRALINE HCL 50 MG TABLET PO SCH (08:30)
[2018-05-01] MEDS: ENALAPRIL MALEATE (10 MG) 10 MG TABLET PO SCH (08:31)
[2018-05-01 08:32] VITALS: BP 123/67
[2018-05-01] MEDS: ATENOLOL 25 MG TABLET PO SCH (08:32)
[2018-05-01] MEDS: LACTULOSE 10 G/15 ML UDC (PYXIS) PO SCH (08:33)
[2018-05-01] MEDS: FOLIC ACID 1 MG TABLET PO SCH (08:33)
[2018-05-01] MEDS: NEOMY SULF/BACITRAC ZN/POLY 15 GM TUBE TP SCH (08:41)
[2018-05-01] MEDS: FLUTICASONE/VILANTEROL 1 EACH BLST.W.DEV IH SCH (08:41)
--- NOTE | 2018-05-01 14:45 | NUR ---
DISCHARGED PT TO [facility] VIA AMBULANCE AND REPORT CALLED IN TO KADEN HOLLIDAY OF [facility].DISCHARGED WITH STABLE V/S.ALL BELONGINGS SENT TO THE PT AND PROVIDED WITH NEW FWW.DENIES Any PAIN OR DISTRESS.
[2018-05-04] MEDS ORDERED: ERGOCALCIFEROL (VITAMIN D 2) 50,000 UNIT CAPSULE PO SCH (09:00)
== END 2018-05-01 14:45 | DRG 605 ==
LOC: ER 16:57 → MED 20:07
PROVIDERS: ADMIT Internal Medicine; ATTEND Internal Medicine
DX: S70.02XA Contusion of left hip, initial encounter (principal); A08.4 Viral intestinal infection, unspecified; E78.5 Hyperlipidemia, unspecified; E11.9 Type 2 diabetes mellitus without complications; F32.9 Major depressive disorder, single episode, unspecified; J44.9 Chronic obstructive pulmonary disease, unspecified; I10 Essential (primary) hypertension; S30.811A Abrasion of abdominal wall, initial encounter; S60.512A Abrasion of left hand, initial encounter; W18.30XA Fall on same level, unspecified, initial encounter; Y92.129 Unspecified place in nursing home as the place of occurrence of the external cause; E66.9 Obesity, unspecified; Z68.29 Body mass index [BMI] 29.0-29.9, adult; R53.1 Weakness; M10.9 Gout, unspecified; F41.9 Anxiety disorder, unspecified; F17.210 Nicotine dependence, cigarettes, uncomplicated
CPT/HCPCS: 36415; 72110-TC; 73502; 80048-TC; 80076-TC; 81000-TC; 83735-TC; 84100-TC; 85025-TC; 87081-TC; 94760-TC; A4606; G0378; J3475; Z7610